=== PATIENT | female | born 1950 | race Caucasian/White ===

== ENCOUNTER → 2018-02-12 15:40 | Outpatient (CLI) | payer OTHER, SELFPAY | PROVIDERS: Family Provider Family Medicine; PCP Family Medicine; Visit Provider Family Medicine | DX: M85.852 Other specified disorders of bone density and structure, left thigh (principal); Z78.0 Asymptomatic menopausal state; Z87.891 Personal history of nicotine dependence | CPT/HCPCS: 77080 ==

== ENCOUNTER → 2019-05-17 15:48 | Outpatient (CLI) | payer OTHER, SELFPAY ==
--- NOTE | 2019-05-17 | DI.MG.S_ITS ---
BILATERAL DIGITAL SCREENING MAMMOGRAM 3D/2D WITH CAD: 05/17/2019 CLINICAL: Routine screening. Comparison is made to exams dated: 12/22/2016 mammogram, 12/08/2014 mammogram, and 03/01/2013 mammogram - [facility]. The tissue of both breasts is heterogeneously dense. This may lower the sensitivity of mammography. Current study was also evaluated with a Computer Aided Detection (CAD) system. No significant masses, calcifications, or other findings are seen in either breast. There has been no significant interval change. IMPRESSION: NEGATIVE There is no mammographic evidence of malignancy. A 1 year screening mammogram is recommended. This exam was interpreted at Station ID: [id number]. NOTE: For mammograms, a report in lay terms will be sent to the patient. Approximately 15% of breast malignancies will not be visualized mammographically. In the management of a palpable breast mass, a negative mammogram must not discourage biopsy of a clinically suspicious lesion. Electronically Signed By: Brady thorne/yany:05/17/2019 22:30:19 letter sent: Normal Exam ACR BI-RADS Category 1: Negative [id number]
== END ==
PROVIDERS: PCP Family Medicine; Visit Provider Family Medicine
DX: Z12.31 Encounter for screening mammogram for malignant neoplasm of breast (principal)
CPT/HCPCS: 77063; 77067

== ENCOUNTER 2019-06-25 12:42 | Emergency (ER) | payer OTHER, SELFPAY ==
[2019-06-25 12:53] VITALS: BP 154/69; PULSE 40; RESP 20; TEMP 36.4; O2SAT 96; BMI 22.8
[2019-06-25 13:14] VITALS: PULSE 37
[2019-06-25 13:15] VITALS: PULSE 78
--- NOTE | 2019-06-25 13:16 | PC.NURSE ---
Patient's pulse rate on the monitor is 78-80 however her palpable pulse in 39-40. In vital signs then we will put in a palpation pulse and then a monitor pulse. Patient is having electrical activity of [place] .
[2019-06-25 13:18] VITALS: BP 141/63; PULSE 46; RESP 22; O2SAT 96
--- NOTE | 2019-06-25 13:21 | DI.RAD.S_ITS ---
PROCEDURE: XR CHEST 2V INDICATIONS: Persistent cough TECHNIQUE: 2 views of the chest were acquired. COMPARISON: None. FINDINGS: Surgical changes and devices: None. Lungs and pleura: There is hyperinflation of the lungs with flattening of the hemidiaphragms compatible with COPD. no focal consolidation. No pleural effusions or pneumothorax. Mediastinum: Mediastinal contours are normal. Heart size is normal. Bones and chest wall: No suspicious bony abnormalities. Soft tissues appear unremarkable. IMPRESSION: 1. Findings compatible with COPD without evidence of pneumonia. Dictated by: Isaiah Bernstein M.D. on 06/25/2019 at 13:36 Approved by: Isaiah Bernstein M.D. on 06/25/2019 at 13:36
[2019-06-25 13:22] LABS: Add Manual Diff / Slide Review NO; Basophils Absolute Auto 0 /uL (0-100); Basophils Percent Auto 0.7 % (0-2); Eosinophils Absolute Auto 100 /uL (0-450); Eosinophils Percent Auto 1.5 % (2-4); Hematocrit 40.7 % (36-46); Hemoglobin 13.8 g/dL (12.0-16.0); Lymphocytes Absolute Auto 1300 /uL (1100-4500); Lymphocytes Percent Auto 17.5 % (25-40); Mean Corpuscular Hemoglobin 30.8 PG (26-34); Mean Corpuscular Volume 90.5 fL (80-100); Monocytes Absolute Auto 900 /uL (0-900); Monocytes Percent Auto 12.6 % (3-14); Neutrophils Absolute Auto 5100 /uL (1500-7000); Neutrophils Percent Auto 67.7 % (50-75); Platelet Count 250 X10^3/uL (150-400); Red Blood Cell Count 4.49 X10^6/uL (4.0-5.2); Red Cell Distribution Width 15.5 % (11.6-14.8); White Blood Cell Count 7.5 X10^3/uL (4.5-11.0)
--- NOTE | 2019-06-25 13:23 | ED_ITS ---
HPI - Arrhythmia/Palpitations General Chief Complaint: Arrhythmia/Palpitations Stated Complaint: low heart rate/40bpm Time Seen by Provider: 06/25/19 12:48 Source: patient Mode of arrival: Ambulatory History of Present Illness HPI narrative: This is a 6-year-old female who denies significant past medical history who presents with low pulse rate. Patient typically donates blood, she went to donate blood last week and she was told that her heart rate was too low for donate blood. She is feeling fine at that time. She called her PCP and her primary care provider said that if she continues to feel well she has be rechecked in clinic. She then tried to check her pulse at home and she has a hard time finding in, so decided to come into the emergency department to get it checked today. In triage her pulse ox read a rate of 40, so she checked in. She denies any lightheadedness, or shortness of breath. She has had a cough for over the past week which has been productive of some clear to white sputum, no hemoptysis, no chest pain. She states she has had pneumonia in the past this is not feel like pneumonia to her. She denies any fever. No known history of COPD or any cardiac conditions. Related Data Home Medications Medication Instructions Recorded Confirmed aspirin 81 mg PO QDAY #0 01/27/17 simvastatin 40 mg PO QDAY #0 01/27/17 Previous Rx's Medication Instructions Recorded meclizine 25 mg PO Q8HP PRN #20 tab 01/27/17 ondansetron [Zofran ODT] 4 mg SUBLINGUAL Q6HP PRN #10 odt 01/27/17 Allergies Allergy/AdvReac Type Severity Reaction Status Date / Time No Known Drug Allergies Allergy Verified 06/25/19 13:34 Review of Systems Constitutional Constitutional: Denies fever(s) Cardiovascular Cardiovascular: Denies chest pain and Denies dyspnea Respiratory Respiratory: Denies dyspnea Gastrointestinal Gastrointestinal: Denies vomiting Genitourinary Genitourinary: Denies dysuria Integumentary/Breasts Skin/Breast: Denies rash Neurologic Neurologic: Denies confusion Psychiatric Psychiatric: Denies confusion Patient History Social History Smoking Status: Current some day smoker Smoking Status: Current some day smoker tobacco type: cigarettes alcohol intake frequency: a few times a month Alcohol type: wine Substance Use Type: does not use Exam Narrative Exam Narrative: General: Non-toxic, well-appearing Head: Atraumatic Neck: Normal range of motion Cardiac: Irregular rhythm, on the monitor she has sinus beats with frequent PVCs. Strong radial pulses bilaterally. No lower extremity edema Respiratory: Normal work of breathing, clear to auscultation bilaterally, in termittent cough Abd: Soft, non-tender to palpation in all 4 quadrants Neuro: Alert and oriented x 3, no focal deficits Initial Vital Signs Initial Vital Signs: Vital Signs Temperature 97.5 F L 06/25/19 12:53 Pulse Rate 40 L 06/25/19 12:53 Respiratory Rate 20 06/25/19 12:53 Blood Pressure 154/69 H 06/25/19 12:53 Pulse Oximetry 96 06/25/19 12:53 Course Orders Ordered: ED Orders 06/25/19 12:53 EKG-12 Lead Stat 06/25/19 13:14 Complete Blood Count AUTO DIFF Stat Comprehensive Metabolic Panel Stat Lipase Stat Magnesium Stat Partial Thromboplastin Time Stat Prothrombin Time INR Stat TSH w/ Reflex to FT4 Stat Troponin & CK Cardiac Panel Stat 06/25/19 13:21 XR chest 2V Stat Vital Signs Vital signs: Vital Signs - 8 hr 06/25/19 13:18 06/25/19 14:22 Pulse Rate 46 L 46 L Respiratory Rate 22 Blood Pressure [Right Arm] 141/63 H 125/94 H Pulse Oximetry 96 97 MDM - Arrhythmia/Palpitations Differential Diagnosis Differential diagnosis: Likely palpitations, anxiety, artial fibrillation, ventricular premature beats and ventricular tachycardia Medical Records Attestation: I reviewed the patient's medical records. Lab Data Result diagrams: 06/25/19 13:14 06/25/19 13:14 Labs: Lab Results 06/25/19 06/25/19 06/25/19 Range/Units 13:14 13:14 13:14 WBC 7.5 (4.5-11.0) X10^3/uL RBC 4.49 (4.0-5.2) X10^6/uL Hgb 13.8 (12.0-16.0) g/dL Hct 40.7 (36-46) % MCV 90.5 (80-100) fL MCH 30.8 (26-34) PG MCHC 34.0 (30-36) % RDW 15.5 H (11.6-14.8) % Plt Count 250 (150-400) X10^3/uL Neut % (Auto) 67.7 (50-75) % Lymph % (Auto) 17.5 L (25-40) % [place] % (Auto) 12.6 (3-14) % Eos % (Auto) 1.5 L (2-4) % Baso % (Auto) 0.7 (0-2) % Neut # (Auto) 5100 (8140-0862) /uL Lymph # (Auto) 1300 (8241-9871) /uL [place] # (Auto) 900 (0-900) /uL Eos # (Auto) 100 (0-450) /uL Baso # (Auto) 0 (0-100) /uL PT 11.5 (10.1-12.7) SECONDS INR 1.0 (0.9-1.3) APTT 30 (26.4-36.2) SECONDS Sodium 137 (137-145) mmol/L Potassium 4.2 (3.4-5.1) mmol/L Chloride 104 (98-107) mmol/L Carbon Dioxide 23 (22-32) mmol/L BUN 17 (7-17) mg/dL Creatinine 0.70 (0.52-1.04) mg/dL Estimated GFR > 60.0 (>60) mL/min BUN/Creatinine Ratio 24.3 H (6-22) Glucose 99 (80-110) mg/dL Calcium 9.6 (8.4-10.2) mg/dL Magnesium 1.8 (1.6-2.3) mg/dL Total Bilirubin 0.5 (0.2-1.3) mg/dL AST 30 (14-36) IU/L ALT 31 (<35) IU/L Alkaline Phosphatase 78 (38-126) U/L Total Creatine Kinase 87 (30-135) U/L CK-MB (CK-2) TNP CK-MB (CK-2) Rel Index TNP Troponin I < 0.012 (0.01-0.034) ng/mL Total Protein 6.6 (6.3-8.2) g/dL Albumin 4.1 (3.5-5.0) g/dL Globulin 2.5 (1.7-4.1) g/dL Albumin/Globulin Ratio 1.6 (1.0-2.8) Lipase 68 (23-300) U/L TSH (0.47-4.68) uIU/mL 06/25/19 Range/Units 13:14 WBC (4.5-11.0) X10^3/uL RBC (4.0-5.2) X10^6/uL Hgb (12.0-16.0) g/dL Hct (36-46) % MCV (80-100) fL MCH (26-34) PG MCHC (30-36) % RDW (11.6-14.8) % Plt Count (150-400) X10^3/uL Neut % (Auto) (50-75) % Lymph % (Auto) (25-40) % [place] % (Auto) (3-14) % Eos % (Auto) (2-4) % Baso % (Auto) (0-2) % Neut # (Auto) (7941-2177) /uL Lymph # (Auto) (8109-2428) /uL [place] # (Auto) (0-900) /uL Eos # (Auto) (0-450) /uL Baso # (Auto) (0-100) /uL PT (10.1-12.7) SECONDS INR (0.9-1.3) APTT (26.4-36.2) SECONDS Sodium (137-145) mmol/L Potassium (3.4-5.1) mmol/L Chloride (98-107) mmol/L Carbon Dioxide (22-32) mmol/L BUN (7-17) mg/dL Creatinine (0.52-1.04) mg/dL Estimated GFR (>60) mL/min BUN/Creatinine Ratio (6-22) Glucose (80-110) mg/dL Calcium (8.4-10.2) mg/dL Magnesium (1.6-2.3) mg/dL Total Bilirubin (0.2-1.3) mg/dL AST (14-36) IU/L ALT (<35) IU/L Alkaline Phosphatase (38-126) U/L Total Creatine Kinase (30-135) U/L CK-MB (CK-2) CK-MB (CK-2) Rel Index Troponin I (0.01-0.034) ng/mL Total Protein (6.3-8.2) g/dL Albumin (3.5-5.0) g/dL Globulin (1.7-4.1) g/dL Albumin/Globulin Ratio (1.0-2.8) Lipase (23-300) U/L TSH 2.15 (0.47-4.68) uIU/mL Imaging Data CXR: Radiologist's impression: IMPRESSION: 1. Findings compatible with COPD without evidence of pneumonia. Dictated by: Isaiah Bernstein M.D. on 06/25/2019 at 13:36 Approved by: Isaiah Bernstein M.D. on 06/25/2019 at 13:36 ECG Data Attestation: I personally reviewed and interpreted this ECG as follows: (Time 12:57 p.m., rate 87, rhythm sinus with frequent PVCs. There is some baseline wander which obscures fine detail evaluation, but there is no obvious ST depression or elevation.) MDM Narrative Medical decision making narrative: Patient presents with low pulse measured on several occasions, she is asymptomatic has no chest pain or shortness of breath or lightheadedness. She has had a cough over the last several weeks but this has been improving. Her EKG shows that she in fact is having frequent PVCs, these are not always registering as well on the pulse ox, but her heart rate on the monitor and EKG is within normal range. Her blood pressure is normal, she has no lightheadedness, no syncope, no chest pain. She is not on any obvious medications that would lower her heart rate. Her workup here reveals no signs of ischemia (normal troponin), no signs of pneumonia or acute cardiopulmonary process. She does have COPD, but no increased sputum production, no fever, and her cough has been improving so she would like to defer antibiotics and steroids at this time. I discussed with patient that she needs to follow closely with the primary care provider, and if she is having any symptoms she needs to return to the emergency department. I reviewed return precautions in depth with the patient, who continued to be asymptomatic and was eager to go home. She was discharged in good condition. Discharge Plan Departure Patient Disposition: Home Clinical Impression: Asymptomatic PVCs Discharge Date/Time: 06/25/19 15:11 Activity Restrictions/Additional Instructions: Your labs are reassuring today, your EKG does show frequent PVCs/premature beats. As long as these are not causing any symptoms, you may not need to start any medications, but please follow up with your primary care provider for discussion of any more testing such as an echocardiogram or seeing a environmental engineering technician if needed. If you have any lightheadedness, passing out, chest pain, or shortness of breath, return to the emergency department. Here chest x- ray does show COPD, if your cough does not show continuing improvement you likely will need some steroids. Prescriptions: No Action simvastatin 40 MG tablet 40 mg PO QDAY Qty: 0 RF: 0 aspirin 81 MG tablet,delayed release (DR/EC) 81 mg PO QDAY Qty: 0 RF: 0 meclizine 25 MG tablet 25 mg PO Q8HP PRNQty: 20 RF: 0 ondansetron [Zofran ODT] 4 MG tablet,disintegrating 4 mg Sublingual Q6HP PRNQty: 10 RF: 0 Referrals: Paulino Plascencia MD [Primary Care Provider] - (Early this next week, call Thursday for an appt)
[2019-06-25 13:29] LABS: Prothrombin Time 11.5 SECONDS (10.1-12.7)
[2019-06-25 13:32] LABS: PTT Partial Thromboplastin Tim 30 SECONDS (26.4-36.2)
[2019-06-25 13:41] LABS: Alanine Aminotransferase 31 IU/L (<35); Albumin 4.1 g/dL (3.5-5.0); Albumin Globulin Ratio 1.6 (1.0-2.8); Alkaline Phosphatase 78 U/L (38-126); Aspartate Aminotransferase 30 IU/L (14-36); BUN Creatinine Ratio 24.3 (6-22); Bilirubin Total 0.5 mg/dL (0.2-1.3); Blood Urea Nitrogen 17 mg/dL (7-17); Calcium 9.6 mg/dL (8.4-10.2); Carbon Dioxide 23 mmol/L (22-32); Chloride 104 mmol/L (98-107); Creatine Kinase 87 U/L (30-135); Estimated Glomerular Filt Rate > 60.0 mL/min (>60); Globulin 2.5 g/dL (1.7-4.1); Glucose 99 mg/dL (80-110); HEMOLYSIS < 15 (0-50); Lipase 68 U/L (23-300); Magnesium 1.8 mg/dL (1.6-2.3); Potassium 4.2 mmol/L (3.4-5.1); Sodium 137 mmol/L (137-145); Total Protein 6.6 g/dL (6.3-8.2)
[2019-06-25 13:52] LABS: Troponin I < 0.012 ng/mL (0.01-0.034)
[2019-06-25 14:22] VITALS: BP 125/94; PULSE 46; O2SAT 97
--- NOTE | 2019-06-25 14:40 | PC.NURSE ---
Spoke w/ Dr. Coleman (covering for Dr. Plascencia). Gave report and she will ensure follow up early in week. Added thyroid studies per her request.
[2019-06-25 15:24] LABS: TSH w/ Reflex to FT4 2.15 uIU/mL (0.47-4.68)
== END 2019-06-25 15:11 | disposition home or self-care (01) ==
PROVIDERS: Emergency Provider Emergency Medicine; PCP Family Medicine
DX: I49.3 Ventricular premature depolarization (principal); R05 Cough
CPT/HCPCS: 36415; 71046; 80053; 82550; 83690; 83735; 84443; 84484; 85025; 85610; 85730; 93005; 93041; 99284; 99285

== ENCOUNTER → 2019-08-31 09:27 | Outpatient (CLI) | payer OTHER, SELFPAY ==
--- NOTE | 2019-09-16 16:25 | PM.CARDMON.1 ---
Ammonium Hydroxide Operator Report Referral & Results Date Patient Seen: 08/31/19 Requesting provider: Paulino Plascencia Indication: Palpitations Duration of monitoring (days): 7 Diary information: There are no patient diary entries or patient triggered events Data: Minimum heart rate identified was 52 beats per minute at 05:12 on 09/05/2019 Maximum heart rate was 141 beats per minute at 12:31 on 09/06/2019 Less than 1% of identified beats were supraventricular ectopic in origin Approximately 18% of identified beats were ventricular ectopic in origin including a 32 minutes run of ventricular trigeminy and a 1 minutes run of ventricular bigeminy Patient had 6 runs of SVT/atrial tachycardia longest lasting 8 beats Impression: Despite no patient triggered events or diary entries given the frequency of PVCs it seems logical to assume the patient's sense of palpitations are due to PVCs. No more serious dysrhythmias identified on this study
== END ==
PROVIDERS: PCP Family Medicine; Referring Provider Family Medicine; Visit Provider Family Medicine
DX: R00.2 Palpitations (principal)
CPT/HCPCS: 0296T; 0298T

== ENCOUNTER 2020-09-07 10:13 | Emergency (ER) | payer OTHER, SELFPAY ==
[2020-09-07] VITALS (12 sets, daily range): BP systolic 134–177; BP diastolic 63–86; PULSE 60–74; RESP 19–28; TEMP 36.7; O2SAT 94–97; BMI 25.0
--- NOTE | 2020-09-07 10:28 | DI.RAD.S_ITS ---
PROCEDURE: XR CHEST 1V INDICATIONS: chest pain TECHNIQUE: One view of the chest was acquired. COMPARISON: [facility], CR, XR CHEST 2V, 06/25/2019, 14:02. FINDINGS: Surgical changes and devices: None. Lungs and pleura: Lungs are clear. No pleural effusions or pneumothorax. Mediastinum: Mediastinal contours appear normal. Heart size is normal. Bones and chest wall: No suspicious bony lesions. Overlying soft tissues appear unremarkable. IMPRESSION: No acute disease. Dictated by: Pedrito Diaz M.D. on 09/07/2020 at 11:02 Approved by: Pedrito Diaz M.D. on 09/07/2020 at 11:07
[2020-09-07] MEDS: ASPIRIN 81 MG CHEW TAB 243 MG PO (10:30)
[2020-09-07 10:35] LABS: Add Manual Diff / Slide Review NO; Basophils Absolute Auto 0 /uL (0-100); Basophils Percent Auto 0.7 % (0-2); Eosinophils Absolute Auto 200 /uL (0-450); Eosinophils Percent Auto 3.1 % (2-4); Hematocrit 40.7 % (36-46); Hemoglobin 13.8 g/dL (12.0-16.0); Lymphocytes Absolute Auto 1500 /uL (1100-4500); Lymphocytes Percent Auto 22.3 % (25-40); Mean Corpuscular HGB Conc 33.8 % (30-36); Mean Corpuscular Volume 94.4 fL (80-100); Monocytes Absolute Auto 700 /uL (0-900); Monocytes Percent Auto 10.7 % (3-14); Neutrophils Absolute Auto 4100 /uL (1500-7000); Neutrophils Percent Auto 63.2 % (50-75); Platelet Count 268 X10^3/uL (150-400); Red Blood Cell Count 4.31 X10^6/uL (4.0-5.2); Red Cell Distribution Width 13.2 % (11.6-14.8); White Blood Cell Count 6.5 X10^3/uL (4.5-11.0)
[2020-09-07 10:42] LABS: INR 0.9 (0.9-1.3); Prothrombin Time 10.9 SECONDS (10.1-12.7)
[2020-09-07 10:45] LABS: PTT Partial Thromboplastin Tim 31 SECONDS (26.4-36.2)
[2020-09-07 10:46] LABS: Alanine Aminotransferase 30 IU/L (<35); Albumin 4.2 g/dL (3.5-5.0); Albumin Globulin Ratio 1.6 (1.0-2.8); Alkaline Phosphatase 83 U/L (38-126); Aspartate Aminotransferase 27 IU/L (14-36); BUN Creatinine Ratio 14.5 (6-22); Bilirubin Total 0.2 mg/dL (0.2-1.3); Blood Urea Nitrogen 10 mg/dL (7-17); Calcium 9.2 mg/dL (8.4-10.2); Carbon Dioxide 27 mmol/L (22-32); Chloride 106 mmol/L (98-107); Creatine Kinase 65 U/L (30-135); Estimated Glomerular Filt Rate > 60.0 mL/min (>60); Globulin 2.6 g/dL (1.7-4.1); Glucose 107 mg/dL (80-110); HEMOLYSIS < 15 (0-50); Lipase 261 U/L (23-300); Potassium 4.2 mmol/L (3.4-5.1); Sodium 136 mmol/L (137-145); Total Protein 6.8 g/dL (6.3-8.2)
[2020-09-07 10:57] LABS: Troponin I < 0.012 ng/mL (0.01-0.034)
--- NOTE | 2020-09-07 11:20 | ED.CHESTPAIN ---
HPI - Chest Pain General Chief Complaint: Chest Pain Stated Complaint: Having heart problems Time Seen by Provider: 09/07/20 10:21 Source: patient Mode of arrival: Ambulatory Limitations: no limitations History of Present Illness HPI narrative: Patient is a 70-year-old female who presents with chest discomfort is. She says it has actually been on going for number of weeks. It was worse with movement she thought that she pulled her did something. She noticed it more when she was twisting turning and moving. However over the last week she has had some left arm achiness which does seem to get worse with some exertion. However today she noticed it while she was at rest. It is no longer there she denies any chest discomfort. Pain is not reproducible with palpation or movement. She has no shortness of breath with exertion MD complaint: chest pain Onset (ago): week(s) Duration: intermittent Onset: during exertion Related Data Home Medications Medication Instructions Recorded Confirmed aspirin 81 mg PO QDAY #0 01/27/17 simvastatin 40 mg PO QDAY #0 01/27/17 Previous Rx's Medication Instructions Recorded meclizine 25 mg PO Q8HP PRN #20 tab 01/27/17 ondansetron [Zofran ODT] 4 mg SUBLINGUAL Q6HP PRN #10 odt 01/27/17 Allergies Allergy/AdvReac Type Severity Reaction Status Date / Time No Known Drug Allergies Allergy Verified 09/07/20 10:24 Review of Systems Review of Systems Narrative: GENERAL: Denies chills, fatigue, malaise, fever, sweats, travel HEENT: Denies sinus pain, ear pain, sore throat, difficulty swallowing, neck pain RESPIRATORY: Denies dyspnea, cough, wheezing, hemoptysis, sputum. CARDIOVASCULAR: See HPI GASTROINTESTINAL: Denies nausea, vomiting, abdominal pain, diarrhea, constipation, melena. : Denies dysuria, frequency, incontinence, hematuria, urinary retention, flank pain. MUSCULOSKELETAL: Denies weakness, joint pain, or bony pain SKIN: No rash, no erythema, no pruritus NEUROLOGIC: Denies weakness, dizziness, headache, numbness, change in speech, confusion PSYCHIATRIC: No concerning psychosocial issues. 12 point review of systems is negative except for those stated above and HPI Patient History Medical History Hyperlipidemia Social History Smoking Status: Current some day smoker Smoking Status: Current some day smoker tobacco type: cigarettes alcohol intake frequency: a few times a month Alcohol type: wine Substance Use Type: does not use Exam Initial Vital Signs Initial Vital Signs: Vital Signs Pulse Rate 74 09/07/20 10:21 Respiratory Rate 28 H 09/07/20 10:21 Blood Pressure 177/86 H 09/07/20 10:21 Pulse Oximetry 96 09/07/20 10:21 GENERAL: Well-appearing, well-nourished and in no acute distress. HEENT: Head atraumatic,EOMI, pupils reactive, face symmetric, moist mucous membranes CARDIOVASCULAR: Regular rate and rhythm without murmurs, rubs or gallops. RESPIRATORY: Breath sounds equal bilaterally, no wheezes rales or rhonchi. ABDOMEN: Soft, nontender. Normoactive bowel sounds all 4 quadrants. No guarding or rebound. EXTREMITIES: Normal range of motion, no clubbing or edema. Neurovascularly intact NEUROLOGICAL: Alert and oriented x4.Normal gait and speech. Cranial nerves II through XII grossly intact. SKIN: Warm, dry, no laceration, no petechiae, no rashes or lesions. Scores HEART Score Heart Score history: Slightly Suspicious Heart Score EKG: Normal Heart Score Age: > or = 65 years old Heart Score risk factors: 1-2 risk factors Heart Score troponin: < or = to normal limit Heart Score Total: 3 Course Orders Ordered: ED Orders 09/07/20 10:28 XR chest 1V Stat Complete Blood Count AUTO DIFF Stat Comprehensive Metabolic Panel Stat Lipase Stat Partial Thromboplastin Time Stat Prothrombin Time INR Stat Troponin & CK Cardiac Panel Stat EKG-12 Lead Stat 09/07/20 12:32 Troponin I Stat Discontinued Medications Aspirin (Aspirin 81 Mg Chew Tab) 243 mg PO NOW ONE Stop: 09/07/20 10:29 Last Admin: 09/07/20 10:30 Dose: 243 mg Documented by: LENA Vital Signs Vital signs: Vital Signs - 8 hr 09/07/20 11:30 09/07/20 12:00 09/07/20 12:30 Pulse Rate 63 60 60 Respiratory Rate 22 23 21 Blood Pressure 134/63 138/67 148/72 H Pulse Oximetry 94 94 94 09/07/20 13:00 09/07/20 13:21 09/07/20 13:30 Pulse Rate 60 64 64 Respiratory Rate 23 19 23 Blood Pressure 145/73 H 166/77 H 159/78 H Pulse Oximetry 97 97 96 09/07/20 14:00 09/07/20 14:01 Pulse Rate 67 65 Respiratory Rate 27 H 26 H Blood Pressure 145/63 H Pulse Oximetry 95 95 MDM - Chest Pain Lab Data Attestation: I reviewed the patient's lab results. Result diagrams: 09/07/20 10:28 09/07/20 10:28 Labs: Lab Results 09/07/20 09/07/20 09/07/20 Range/Units 10:28 10:28 10:28 WBC 6.5 (4.5-11.0) X10^3/uL RBC 4.31 (4.0-5.2) X10^6/uL Hgb 13.8 (12.0-16.0) g/dL Hct 40.7 (36-46) % MCV 94.4 (80-100) fL MCH 32.0 (26-34) PG MCHC 33.8 (30-36) % RDW 13.2 (11.6-14.8) % Plt Count 268 (150-400) X10^3/uL Neut % (Auto) 63.2 (50-75) % Lymph % (Auto) 22.3 L (25-40) % [place] % (Auto) 10.7 (3-14) % Eos % (Auto) 3.1 (2-4) % Baso % (Auto) 0.7 (0-2) % Neut # (Auto) 4100 (2190-0896) /uL Lymph # (Auto) 1500 (8357-0371) /uL [place] # (Auto) 700 (0-900) /uL Eos # (Auto) 200 (0-450) /uL Baso # (Auto) 0 (0-100) /uL PT 10.9 (10.1-12.7) SECONDS INR 0.9 (0.9-1.3) APTT 31 (26.4-36.2) SECONDS Sodium 136 L (137-145) mmol/L Potassium 4.2 (3.4-5.1) mmol/L Chloride 106 (98-107) mmol/L Carbon Dioxide 27 (22-32) mmol/L BUN 10 (7-17) mg/dL Creatinine 0.69 (0.52-1.04) mg/dL Estimated GFR > 60.0 (>60) mL/min BUN/Creatinine Ratio 14.5 (6-22) Glucose 107 (80-110) mg/dL Calcium 9.2 (8.4-10.2) mg/dL Total Bilirubin 0.2 (0.2-1.3) mg/dL AST 27 (14-36) IU/L ALT 30 (<35) IU/L Alkaline Phosphatase 83 (38-126) U/L Total Creatine Kinase 65 (30-135) U/L CK-MB (CK-2) TNP CK-MB (CK-2) Rel Index TNP Troponin I < 0.012 (0.01-0.034) ng/mL Total Protein 6.8 (6.3-8.2) g/dL Albumin 4.2 (3.5-5.0) g/dL Globulin 2.6 (1.7-4.1) g/dL Albumin/Globulin Ratio 1.6 (1.0-2.8) Lipase 261 (23-300) U/L 09/07/20 Range/Units 12:32 WBC (4.5-11.0) X10^3/uL RBC (4.0-5.2) X10^6/uL Hgb (12.0-16.0) g/dL Hct (36-46) % MCV (80-100) fL MCH (26-34) PG MCHC (30-36) % RDW (11.6-14.8) % Plt Count (150-400) X10^3/uL Neut % (Auto) (50-75) % Lymph % (Auto) (25-40) % [place] % (Auto) (3-14) % Eos % (Auto) (2-4) % Baso % (Auto) (0-2) % Neut # (Auto) (5016-8976) /uL Lymph # (Auto) (3849-3302) /uL [place] # (Auto) (0-900) /uL Eos # (Auto) (0-450) /uL Baso # (Auto) (0-100) /uL PT (10.1-12.7) SECONDS INR (0.9-1.3) APTT (26.4-36.2) SECONDS Sodium (137-145) mmol/L Potassium (3.4-5.1) mmol/L Chloride (98-107) mmol/L Carbon Dioxide (22-32) mmol/L BUN (7-17) mg/dL Creatinine (0.52-1.04) mg/dL Estimated GFR (>60) mL/min BUN/Creatinine Ratio (6-22) Glucose (80-110) mg/dL Calcium (8.4-10.2) mg/dL Total Bilirubin (0.2-1.3) mg/dL AST (14-36) IU/L ALT (<35) IU/L Alkaline Phosphatase (38-126) U/L Total Creatine Kinase (30-135) U/L CK-MB (CK-2) CK-MB (CK-2) Rel Index Troponin I < 0.012 (0.01-0.034) ng/mL Total Protein (6.3-8.2) g/dL Albumin (3.5-5.0) g/dL Globulin (1.7-4.1) g/dL Albumin/Globulin Ratio (1.0-2.8) Lipase (23-300) U/L Imaging Data Chest x-ray: Radiologist's Impression: PROCEDURE: XR CHEST 1V INDICATIONS: chest pain TECHNIQUE: One view of the chest was acquired. COMPARISON: [facility], , XR CHEST 2V, 06/25/2019, 14:02. FINDINGS: Surgical changes and devices: None. Lungs and pleura: Lungs are clear. No pleural effusions or pneumothorax. Mediastinum: Mediastinal contours appear normal. Heart size is normal. Bones and chest wall: No suspicious bony lesions. Overlying soft tissues appear unremarkable. IMPRESSION: No acute disease. Dictated by: Pedrito Diaz M.D. on 09/07/2020 at 11:02 Approved by: Pedrito Diaz M.D. on 09/07/2020 at 11:07 ECG Data Attestation: I personally reviewed and interpreted this ECG as follows: Prior ECG tracings: available for review Interpretation: Normal sinus rhythm rate 70 p.r. interval 162 QRS 86 QTC [address] changes or T-wave inversions previous EKG was bigeminy so this is much improved. MDM Narrative Medical decision making narrative: Patient remains chest pain-free and arm pain free in the emergency department. She has 2-troponins ambulatory in the ED without recurrence of pain. Concern for possible escalation of symptoms arm achiness is could be equivalent to angina especially in women however it has been ongoing for couple of days. I discussed possible admission with patient for stress test however at this time she does not want to stay she would rather follow up with PCP [id number] Dr. Sherman updated on patient's symptoms and test results at this time we both agree that outpatient stress test is best option. I have instructed patient to call his PCP office to schedule an appointment for Thursday or Thursday and to have stress test. I discussed all findings with the patient, Education has been performed regarding treatment plan, diagnosis, warning signs and symptoms and all concerns have been addressed. Verbally agree with and understood all of the above. Discharge Plan Departure Patient Disposition: Home Clinical Impression: Chest pain Qualifiers: Chest pain type: other chest pain Qualified Code(s): R07.89 - Other chest pain Instructions: DI for Chest Pain Activity Restrictions/Additional Instructions: *You have been diagnosed with chest pain *What to do: You need a stress test. Please call your primary care provider today as soon as you get home to schedule an appointment for Thursday or Thursday so that they can schedule a stress test. I spoke with Dr. Sherman who is aware of this. *Continue to take medications as directed *Follow up with your primary care provider in 2-3 days *Return to ER if you should have increasing arm achiness, chest pain, shortness of breath or any new, worsening or concerning symptoms Prescriptions: No Action simvastatin 40 MG tablet 40 mg PO QDAY Qty: 0 RF: 0 aspirin 81 MG tablet,delayed release (DR/EC) 81 mg PO QDAY Qty: 0 RF: 0 meclizine 25 MG tablet 25 mg PO Q8HP PRNQty: 20 RF: 0 ondansetron [Zofran ODT] 4 MG tablet,disintegrating 4 mg Sublingual Q6HP PRNQty: 10 RF: 0 Referrals: Astrid Sherman MD [Physician] -
[2020-09-07 13:05] LABS: Troponin I < 0.012 ng/mL (0.01-0.034)
== END 2020-09-07 14:12 | disposition home or self-care (01) ==
PROVIDERS: Emergency Provider Emergency Medicine
DX: R07.89 Other chest pain (principal); E78.5 Hyperlipidemia, unspecified
CPT/HCPCS: 36415; 71045; 80053; 82550; 83690; 84484; 85025; 85610; 85730; 93005; 93010; 99283; 99284

== ENCOUNTER → 2020-09-15 14:22 | Outpatient (CLI) | payer OTHER, SELFPAY ==
[2020-09-15 16:31] LABS: COVID19 -Nasal RAPID Negative (Negative)
== END ==
PROVIDERS: Visit Provider Student in an Organized Health Care Education/Training Program
DX: Z01.812 Encounter for preprocedural laboratory examination (principal); Z20.822 Contact with and (suspected) exposure to COVID-19
CPT/HCPCS: 87635

== ENCOUNTER → 2020-09-17 13:35 | Outpatient (CLI) | payer OTHER, SELFPAY ==
--- NOTE | 2020-09-17 | DI.NM.S_ITS ---
PROCEDURE: NM VINCENT PERF SPECT REST & STR Rest and exercise myocardial perfusion SPECT with gated imaging and ejection fraction RADIOPHARMACEUTICAL: 25.4 mCi Tc-99m sestamibi IV at rest and 25.8 mCi Tc-99m sestamibi IV at peak exercise. A two day-protocol was performed. INDICATIONS: Cardiac arrhythmia, unspecified TECHNIQUE: Radiopharmaceutical was injected at peak stress test, and also at rest. SPECT images were obtained. SPECT myocardial perfusion images were displayed in short axis, horizontal long axis, and vertical long axis views. Gated images were reviewed using [employer] software. COMPARISON: None. CARDIAC STRESS: A standard Bird treadmill exercise tolerance test was performed by the patient under the supervision of an attending staff. The patient exercised for 4 minutes and 1 seconds; functional aerobic impairment (NURY) is +28%. Hemodynamic data: There is normal blood pressure and heart rate response to exercise stress. Patient achieved 100% of maximum predicted heart rate at peak exercise. Symptoms: Patient denied chest pain during exercise. EKG: Mild horizontal ST depressions in the inferior and anterolateral leads; no ectopy. FINDINGS: Raw data: There is good myocardial labeling by radiotracer. No significant motion artifacts. Wpji-mm-mrdqx ratio is 0.32 (normal is less than 0.38 for sestamibi tracer, and less than 0.50 for thallium tracer). Left ventricle function: Gated images demonstrate normal left ventricle wall thickening. No segmental wall motion abnormality. No transient ischemic dilation; TID is 0.83 (normal less than 1.3). The left ventricle resting end-diastolic volume is 64 mL. Left ventricle stress ejection fraction is 66%; normal values are above 45%. Myocardial perfusion: There is a moderately intense fixed defect in the inferior wall defect that resolves with prone imaging, suggesting attenuation artifact than true ischemia or infarction. IMPRESSION: Low risk, probably normal treadmill nuclear stress test. 1) There is a moderately intense fixed defect in the inferior wall defect that resolves with prone imaging, suggesting attenuation artifact than true ischemia or infarction. 2) Normal left ventricular size, wall motion, and systolic function (EF post stress 66%). 3) Mild horizontal ST depressions in the inferior and anterolateral leads. ECG changes in the normal perfusion images are likely false positive. 4) No angina during the study. 5) Reduced exercise tolerance (7.0 METs, NURY +28%). Target heart rate achieved. Appropriate BP response to exercise. 6) Compared to the nuclear stress test done 04/12/2012, ischemia in the LAD territory is no longer present on the current study. Dictated by: Love Palacios MD on 09/18/2020 at 14:01 Approved by: Love Palacios MD on 09/18/2020 at 14:05
== END ==
PROVIDERS: Referring Provider Internal Medicine; Visit Provider Internal Medicine
DX: I49.9 Cardiac arrhythmia, unspecified (principal); R07.89 Other chest pain
CPT/HCPCS: 78452; 93017; A9502

== ENCOUNTER → 2021-04-18 16:49 | Outpatient (CLI) | payer OTHER, SELFPAY ==
--- NOTE | 2021-04-18 | DI.MG.S_ITS ---
BILATERAL DIGITAL SCREENING MAMMOGRAM 3D/2D WITH CAD: 04/18/2021 CLINICAL: Routine screening. Comparison is made to exams dated: 05/17/2019 mammogram, 12/22/2016 mammogram, and 12/08/2014 mammogram - [facility]. The tissue of both breasts is heterogeneously dense. This may lower the sensitivity of mammography. Current study was also evaluated with a Computer Aided Detection (CAD) system. There is a benign calcification in the right breast. There also are benign calcifications in the left breast. There is a mole marker on the right breast. No significant masses, calcifications, or other findings are seen in either breast. There has been no significant interval change. IMPRESSION: BENIGN There is no mammographic evidence of malignancy. A 1 year screening mammogram is recommended. This exam was interpreted at Station ID: [id number]. NOTE: For mammograms, a report in lay terms will be sent to the patient. Approximately 15% of breast malignancies will not be visualized mammographically. In the management of a palpable breast mass, a negative mammogram must not discourage biopsy of a clinically suspicious lesion. Electronically Signed By: Nii Richards acr/penrad:04/18/2021 17:17:22 letter sent: Normal Exam ACR BI-RADS Category 2: Benign Finding(s) 3342F
== END ==
PROVIDERS: PCP Family Medicine; Referring Provider Family Medicine; Visit Provider Family Medicine
DX: Z12.31 Encounter for screening mammogram for malignant neoplasm of breast (principal)
CPT/HCPCS: 77063; 77067

== ENCOUNTER → 2022-05-02 15:53 | Outpatient (CLI) | payer OTHER, SELFPAY ==
--- NOTE | 2022-05-02 15:56 | DI.MG.S_ITS ---
BILATERAL DIGITAL SCREENING MAMMOGRAM 3D/2D WITH CAD: 05/02/2022 CLINICAL: Routine screening. Comparison is made to exams dated: 04/18/2021 mammogram, 05/17/2019 mammogram, and 12/22/2016 mammogram - [facility]. Both breasts are heterogeneously dense, which may obscure small masses (category c / 51-75% glandular tissue). Current study was also evaluated with a Computer Aided Detection (CAD) system. There is a possible new irregular asymmetry in the left breast middle depth lateral region seen on the craniocaudal view only. No other significant masses, calcifications, or other findings are seen in either breast. IMPRESSION: INCOMPLETE: NEEDS ADDITIONAL IMAGING EVALUATION The possible new irregular asymmetry in the left breast is indeterminate. Additional views with possible ultrasound are recommended. Based on the Tyrer Cuzick model (a risk assessment model) the patient's lifetime risk is 6.6% and her 10 year risk is 5.4%. According to the ACR, ACS, and NCCN guidelines, an annual breast MRI exam along with mammogram is recommended if the patient's lifetime risk is 20% or greater. This exam was interpreted at Station ID: [id number]. NOTE: For mammograms, a report in lay terms will be sent to the patient. Approximately 15% of breast malignancies will not be visualized mammographically. In the management of a palpable breast mass, a negative mammogram must not discourage biopsy of a clinically suspicious lesion. Electronically Signed By: Jasmin alvarez/yany:05/02/2022 18:05:31 letter sent: Additional Imaging Needed ACR BI-RADS Category 0: Incomplete 3340F
== END ==
PROVIDERS: PCP Family Medicine; Referring Provider Family Medicine; Visit Provider Family Medicine
DX: Z12.31 Encounter for screening mammogram for malignant neoplasm of breast (principal)
CPT/HCPCS: 77063; 77067

== ENCOUNTER → 2022-06-09 11:54 | Outpatient (CLI) | payer OTHER, SELFPAY ==
--- NOTE | 2022-06-09 11:56 | DI.US.S_ITS ---
LIMITED ULTRASOUND OF LEFT BREAST: 06/09/2022 CLINICAL: Patient returns today to evaluate an asymmetry in the left breast. Comparison is made to exams dated: 06/09/2022 mammogram, 05/02/2022 mammogram, 04/18/2021 mammogram, 05/17/2019 mammogram, and 12/22/2016 mammogram - [facility]. Color flow ultrasound of the left breast 2-3 o'clock region was performed. [place] scale images of the real-time examination were reviewed. No significant abnormalities were seen sonographically in the left breast. IMPRESSION: NEGATIVE There is no sonographic evidence of malignancy. There is no abnormality seen in the left breast to correspond with the mammography finding which is consistent with normal fibroglandular tissue. Return to annual mammogram screening schedule is recommended. This exam was interpreted at Station ID: [id number]. Electronically Signed By: Srinivasan bernal/yany:06/09/2022 13:49:19 letter sent: Normal Exam Ultrasound BI-RADS: 1 Negative
--- NOTE | 2022-06-09 11:56 | DI.MG.S_ITS ---
UNILATERAL LEFT DIGITAL DIAGNOSTIC MAMMOGRAM 3D/2D WITH ADDITIONAL VIEWS: 06/09/2022 CLINICAL: Additional evaluation requested from prior study. Comparison is made to exams dated: 05/02/2022 mammogram, 04/18/2021 mammogram, 05/17/2019 mammogram, and 12/22/2016 mammogram - [facility]. The left breast is heterogeneously dense, which may obscure small masses (category c / 51-75% glandular tissue). There is a possible asymmetry in the left breast at 2 o'clock middle depth. This is less prominent. No other significant masses or calcifications are seen in the breast. IMPRESSION: INCOMPLETE: NEEDS ADDITIONAL IMAGING EVALUATION The possible asymmetry in the left breast is indeterminate. An ultrasound is recommended. Based on the Tyrer Cuzick model (a risk assessment model) the patient's lifetime risk is 6.6% and her 10 year risk is 5.4%. According to the ACR, ACS, and NCCN guidelines, an annual breast MRI exam along with mammogram is recommended if the patient's lifetime risk is 20% or greater. This exam was interpreted at Station ID: [id number]. NOTE: For mammograms, a report in lay terms will be sent to the patient. Approximately 15% of breast malignancies will not be visualized mammographically. In the management of a palpable breast mass, a negative mammogram must not discourage biopsy of a clinically suspicious lesion. Electronically Signed By: Srinivasan bernal/yany:06/09/2022 13:48:19 ACR BI-RADS Category 0: Incomplete 3340F
== END ==
PROVIDERS: PCP Family Medicine; Referring Provider Family Medicine; Visit Provider Family Medicine
DX: R92.2 Inconclusive mammogram (principal)
CPT/HCPCS: 76642; 77065; G0279

== ENCOUNTER → 2022-10-20 10:09 | Outpatient (CLI) | payer OTHER, SELFPAY ==
--- NOTE | 2022-10-20 10:24 | DI.DEXA.S_ITS ---
Bone Density Report Name: ISH BALDERAS Age: 72 Sex: Female Ethnicity: White Date of : 1950 Indication: osteopenia; Referring Provider: ALTAGRACIA SHETTY Study: Bone densitometry was performed. Exam Date: October 20, 2022 Accession number: [id number] Bone Density: Region BMD T-score Z-score Classification AP Spine(L1-L4) 0.995 -0.5 1.8 Normal Femoral Neck (Left) 0.527 -2.9 -0.9 Osteoporosis Total Hip (Left) 0.681 -2.1 -0.4 Osteopenia Femoral Neck (Right) 0.556 -2.6 -0.6 Osteoporosis Total Hip (Right) 0.659 -2.3 -0.6 Osteopenia Total Hip Mean 0.670 -2.2 -0.5 Osteopenia World Health Organization criteria for BMD impression classify patients as: Normal (T-score at or above -1.0), Osteopenia (T-score between -1.0 and -2.5), or Osteoporosis (T-score at or below -2.5). 10-year Fracture Risk: FRAX not reported because: Some T-score for Spine Total or Hip Total or Femoral Neck at or below -2.5 Previous Exams: -- Region Exam Age BMD T-score BMD Change BMD Change Date g/cm2 vs Baseline vs Previous -- AP Spine (L1-L4) 10/20/2022 72 0.995 -0.5 -0.078 (-7.3%)# -0.078 (-7.3%)# 02/12/2018 67 1.073 0.2 Total Hip(Left) 10/20/2022 72 0.681 -2.1 0.008 (1.2%)# 0.008 (1.2%)# 02/12/2018 67 0.672 -2.2 Total Hip(Right) 10/20/2022 72 0.659 -2.3 -0.010 (-1.5%)# -0.010 (-1.5%)# 02/12/2018 67 0.669 -2.2 -- *Denotes significance at 95% confidence level, LSC for AP Spine = 0.022 g/cm2, LSC for Total Hip = 0.027 g/cm2 # Denotes dissimilar scan types or analysis methods Impression: The patient has osteoporosis, based on the Left Femoral Neck T-score. No significant bone loss was observed. Discussion: INCREASED RISK OF FRACTURE. BONE DENSITY IS UNDESIRABLY LOW AT ONE OR MORE SKELETAL SITES, CONSISTENT WITH POSTMENOPAUSAL OSTEOPOROSIS. This patient's lowest T-score meets the World Health Organization's (WHO) criteria for osteoporosis at one or more sites (T-score -2.5 or below). In untreated patients, the risk of osteoporotic fracture increases approximately two-fold for each 1.0 SD decrease in T-score. Low bone density is not the only risk factor for fracture; also consider factors such as patient's age, frailty or poor health, risk of falling, risk of injury, previous osteoporotic fracture, family history of osteoporosis, cigarette smoking, low body weight, etc. Not everyone with low bone mineral density has osteoporosis; osteomalacia and other metabolic bone disorders should also be considered. Patients who have osteoporosis should be evaluated for specific diseases and conditions (secondary causes) that may cause or contribute to bone loss. The [place] Association [employer] Clinical Endocrinologists (AACE) and National Osteoporosis Foundation (NOF) recommend pharmacologic intervention for all postmenopausal women whose T-score is in this range. The patient should follow a healthful lifestyle (good nutrition with adequate calcium and vitamin D, and appropriate weight-bearing exercise). Follow-Up: Consider a repeat BMD and Vertebral Fracture Assessment (VFA) exam in 2 years or sooner if medically necessary, to reassess this patient's status. Reported by: LYNNETTE MOURA M.D. on 10/20/2022 10:36:00 AM.
== END ==
PROVIDERS: PCP Family Medicine; Referring Provider Family Medicine; Visit Provider Family Medicine
DX: M81.0 Age-related osteoporosis without current pathological fracture (principal); Z78.0 Asymptomatic menopausal state
CPT/HCPCS: 77080

== ENCOUNTER → 2022-12-27 13:40 | Outpatient (CLI) | payer OTHER, SELFPAY ==
--- NOTE | 2022-12-27 | DI.MRI.S_ITS ---
PROCEDURE: MR HUMERUS RT WO CON INDICATIONS: Pain in right upper arm TECHNIQUE: Noncontrast coronal and sagittal T1 spin echo and STIR; axial T1 spin echo and T2 fast spin echo with fat saturation through the right humerus. COMPARISON: [facility], , MR SHOULDER RT WO CON, 12/27/2022, 14:03. FINDINGS: Image quality: Excellent. Bones: The visualized bone marrow demonstrates normal signal on all sequences. The overlying cortex appears intact. No acute fractures lines or intra-osseous lesions. Degenerative changes are seen in the glenohumeral and acromioclavicular joints, better demonstrated on the MRI of the shoulder performed the same time. Soft tissues: The scanned muscles demonstrate normal overall bulk and internal signal. Subcutaneous tissues appear normal as well. No soft tissue masses are present. Moderate glenohumeral effusion and small subacromial/subdeltoid bursal effusion are present. No elbow joint effusion. An intermediate signal intensity nodule is incidentally noted in the included right upper lobe of the lung measuring approximately 4 mm (image 12 series 6). Proximal and distal biceps tendons appear to remain in continuity. No intramuscular edema. IMPRESSION: 1. No acute abnormality identified in the right upper arm. 2. Degenerative changes are noted in the glenohumeral and acromioclavicular joints with a moderate glenohumeral effusion and a small subacromial/subdeltoid bursal effusion. However, the internal structures of the shoulder are better evaluated on the shoulder MRI performed on the same day. 3. Incidental right upper lobe pulmonary nodule measuring 4 mm. If the patient is at an increased risk for lung malignancy, a noncontrast CT of the chest could be performed to evaluate for additional nodules. Approved by: Srinivasan Hidalgo M.D. on 12/29/2022 at 11:16
--- NOTE | 2022-12-27 | DI.MRI.S_ITS ---
PROCEDURE: MR SHOULDER RT WO CON INDICATIONS: Pain in right upper arm TECHNIQUE: Noncontrast oblique coronal T2 fast spin echo with fat saturation, oblique sagittal T1 spin echo and T2 fast spin echo with fat saturation, axial T1 spin echo and T2 fast spin echo with fat saturation through the shoulder. COMPARISON: None. FINDINGS: Image quality: Excellent. Rotator cuff: There is moderate to severe supraspinatus and infraspinatus tendinosis with low-grade partial bursal sided tearing of the supraspinatus tendon at the anterior footprint. The tearing of the anterior supraspinatus tendon insertion minor tendon is intact. Mild subscapularis tendinosis. No significant rotator cuff muscle atrophy. Bones and bursae: No acute trabecular bone injury or fracture. Chronic traction cystic changes are seen at the posterosuperior humeral head and greater tuberosity near the rotator cuff tendon insertions. High-grade and likely focal full-thickness cartilage loss is seen in the glenohumeral joint, which is most prominent at the central glenoid where there is focal subchondral cystic changes as well as at the superomedial humeral head. Moderate degenerative changes are seen at the acromioclavicular joint with subchondral cystic changes and subchondral edema as well as marginal osteophyte formation. There is a small amount of subacromial/subdeltoid bursal fluid. A moderate glenohumeral effusion is present. Filling defects within the superior subscapularis recess measuring up to 12 x 11 x 4 mm may represent a loose body or focal synovial hypertrophy. Capsule and soft tissues: There is diffuse labral degeneration. The proximal biceps long head tendon demonstrates tendinosis and partial intrasubstance tearing extending to the biceps anchor. There is perching along the medial aspect of the bicipital groove without subluxation. Effacement of the normal fat signal is noted in the rotator interval. Glenohumeral ligaments appear to be intact. IMPRESSION: 1. Moderate to severe supraspinatus and infraspinatus tendinosis with focal low-grade partial bursal sided tearing at the anterior supraspinatus insertion measuring 4 mm in anterior-posterior dimension. Mild subscapularis tendinosis. 2. Partial intrasubstance tearing of the proximal biceps long head tendon extending to the biceps tendon anchor, superimposed on chronic tendinosis. 3. Focal full-thickness cartilage loss at the central glenoid with subchondral cystic changes, superimposed on background moderate to high-grade glenohumeral cartilage loss. Diffuse labral degeneration is noted with chronic degenerative tearing. 4. Moderate glenohumeral effusion with a 12 mm filling defect in the superior subscapularis recess that may represent an intra-articular loose body or focal synovial hypertrophy. 5. Moderate acromioclavicular joint osteoarthrosis. 6. Small subacromial/subdeltoid bursal effusion or bursitis. 1. Approved by: Srinivasan Hidalgo M.D. on 12/29/2022 at 10:56
== END ==
PROVIDERS: PCP Family Medicine; Referring Provider Family Medicine; Visit Provider Family Medicine
DX: M75.111 Incomplete rotator cuff tear or rupture of right shoulder, not specified as traumatic (principal); M79.621 Pain in right upper arm; S46.111A Strain of muscle, fascia and tendon of long head of biceps, right arm, initial encounter; S43.491A Other sprain of right shoulder joint, initial encounter; M19.011 Primary osteoarthritis, right shoulder; M25.411 Effusion, right shoulder
CPT/HCPCS: 73218; 73221

== ENCOUNTER → 2023-12-02 16:25 | Outpatient (CLI) | payer OTHER, SELFPAY ==
--- NOTE | 2023-12-02 16:27 | DI.RAD.S_ITS ---
PROCEDURE: XR KNEE RT 4V INDICATIONS: R KNEE PAIN TECHNIQUE: 4 views of the knee were acquired. COMPARISON: None. FINDINGS: Bones: No fractures or dislocations. No suspicious bony lesions. Soft tissues: Small joint effusion. No suspicious soft tissue calcifications. IMPRESSION: Small knee joint effusion. No significant osteoarthritic changes. No acute osseous abnormality. If pain persists with conservative management, consider repeat x-ray in 10-14 days or cross-sectional imaging. Dictated by: Serg Jin M.D. on 12/02/2023 at 16:58 Approved by: Serg Jin M.D. on 12/02/2023 at 16:58
== END ==
PROVIDERS: PCP Family Medicine; Referring Provider Family Medicine; Visit Provider Family Medicine
DX: M25.461 Effusion, right knee (principal); M25.561 Pain in right knee; G89.29 Other chronic pain
CPT/HCPCS: 73564

== ENCOUNTER → 2024-03-30 15:23 | Outpatient (CLI) | payer OTHER, SELFPAY ==
--- NOTE | 2024-03-30 15:24 | DI.MG.S_ITS ---
BILATERAL DIGITAL SCREENING MAMMOGRAM 3D/2D WITH CAD: 03/30/2024 CLINICAL: Routine screening. Comparison is made to exams dated: 05/02/2022 mammogram, 04/18/2021 mammogram, and 05/17/2019 mammogram - [facility]. The breasts are heterogeneously dense, which may obscure small masses (category c / 51-75% glandular tissue). Current study was also evaluated with a Computer Aided Detection (CAD) system. No significant masses, calcifications, or other findings are seen in either breast. There has been no significant interval change. IMPRESSION: NEGATIVE There is no mammographic evidence of malignancy. A 1 year screening mammogram is recommended. Based on the Tyrer Cuzick model (a risk assessment model) the patient's lifetime risk is 5.7% and her 10 year risk is 5.7%. According to the ACR, ACS, and NCCN guidelines, an annual breast MRI exam along with mammogram is recommended if the patient's lifetime risk is 20% or greater. This exam was interpreted at Station ID: [id number]. NOTE: For mammograms, a report in lay terms will be sent to the patient. Approximately 15% of breast malignancies will not be visualized mammographically. In the management of a palpable breast mass, a negative mammogram must not discourage biopsy of a clinically suspicious lesion. Electronically Signed By: Terence ziegler/yany:03/31/2024 08:09:51 letter sent: Normal Exam ACR BI-RADS Category 1: Negative 3341F
== END ==
LOC: MAMMO 15:23
PROVIDERS: PCP Family Medicine; Referring Provider Family Medicine; Visit Provider Family Medicine
DX: Z12.31 Encounter for screening mammogram for malignant neoplasm of breast (principal); R92.333 Mammographic heterogeneous density, bilateral breasts
CPT/HCPCS: 77063; 77067

== ENCOUNTER → 2024-08-04 14:49 | Outpatient (CLI) | payer OTHER, SELFPAY ==
--- NOTE | 2024-08-04 14:51 | DI.RAD.S_ITS ---
PROCEDURE: XR KNEE LT 3V INDICATIONS: KNEE PAIN TECHNIQUE: 3 views of the knee were acquired. COMPARISON: [facility], CR, XR KNEE RT 4V, 12/02/2023, 15:33. FINDINGS: Bones: No fractures or dislocations. No suspicious bony lesions. Minimal tricompartment joint space loss. Soft tissues: No joint effusion. No suspicious soft tissue calcifications. IMPRESSION: No acute bony abnormality or significant effusion. Dictated by: Jasmin Garza M.D. on 08/04/2024 at 18:03 Approved by: Jasmin Garza M.D. on 08/04/2024 at 18:03
--- NOTE | 2024-08-04 14:51 | DI.RAD.S_ITS ---
PROCEDURE: XR KNEE RT 3V INDICATIONS: KNEE PAIN TECHNIQUE: 3 views of the knee were acquired. COMPARISON: [facility], CR, XR KNEE RT 4V, 12/02/2023, 15:33. FINDINGS: Bones: No fractures or dislocations. No suspicious bony lesions. Minimal tricompartment joint space loss. Soft tissues: Small joint effusion. No suspicious soft tissue calcifications. IMPRESSION: No acute bony abnormality or significant degeneration. Small joint effusion is nonspecific, similar compared to the prior exam. Dictated by: Jasmin Garza M.D. on 08/04/2024 at 18:03 Approved by: Jasmin Garza M.D. on 08/04/2024 at 18:04
== END ==
LOC: RAD 14:51
PROVIDERS: PCP Family Medicine; Referring Provider Family Medicine; Visit Provider Family Medicine
DX: M25.461 Effusion, right knee (principal); M25.561 Pain in right knee; M25.562 Pain in left knee; G89.29 Other chronic pain
CPT/HCPCS: 73562

== ENCOUNTER → 2024-11-02 13:32 | Outpatient (CLI) | payer OTHER, SELFPAY ==
--- NOTE | 2024-11-02 13:34 | DI.CT.S_ITS ---
PROCEDURE: CT LUNG LOW DOSE SCREENING INDICATIONS: HX of tobacco use TECHNIQUE: Noncontrast 2.0-2.5 mm thick sections acquired from the pulmonary apices to the posterior costophrenic angles. 7 mm thick axial MIP, and 5 mm coronal and sagittal reformats were then acquired. For radiation dose reduction, the following was used: automated exposure control, adjustment of mA and/or kV according to patient size. COMPARISON: None. FINDINGS: Image quality: Diagnostic. Lower Neck: No enlarged lymph nodes. Thyroid: No thyroid nodules which require sonographic follow up, per consensus guidelines. Axillae: No enlarged lymph nodes. Chest Wall: Unremarkable. Bones: Unremarkable. Lungs and Pleura: Moderate emphysematous changes noted particularly at the lung apices. Right upper lobe 3 mm nodule adjacent to the minor fissure on image 3/158. Right upper lobe 6 mm nodule on image 3/91. Three separate nodules in the left lower lobe on image 3/192 measure 3.8 mm, 4.3 mm, and 4.3 mm. Left lower lobe ovoid nodule measures 0.7 by 1.0 cm on image 3/213. Additional 4 mm left lower lobe nodule measures 4 mm on image 3/153 Heart: Heart size is normal. No pericardial effusion. Thoracic Vessels: The aorta and pulmonary arteries demonstrate normal size. Atherosclerotic vascular calcification Mediastinum and Katherine: No enlarged lymph nodes. Esophagus: No wall thickening. No hiatal hernia. Upper Abdomen: Visualized upper abdomen solid organs and bowel loops appear normal. IMPRESSION: Several pulmonary nodules as above, largest measures 0.7 x 1.0 cm in the left lower lobe. Background moderate pulmonary emphysema. LUNG-RADS 4A; recommend three-month follow-up CT or PET-CT Approved by: Moustapha Luz M.D. on 11/02/2024 at 15:51
== END ==
PROVIDERS: PCP Family Medicine; Referring Provider Family Medicine; Visit Provider Family Medicine
DX: Z87.891 Personal history of nicotine dependence (principal); Z12.2 Encounter for screening for malignant neoplasm of respiratory organs; R91.8 Other nonspecific abnormal finding of lung field; J43.9 Emphysema, unspecified
CPT/HCPCS: 71271

== ENCOUNTER → 2025-01-11 13:10 | Outpatient (CLI) | payer OTHER, SELFPAY ==
--- NOTE | 2025-01-11 | DI.US.S_ITS ---
PROCEDURE: US PELVIC COMPLETE INDICATIONS: LLQ PAIN X 3 DAYS TECHNIQUE: Real-time scanning was performed of the pelvic organs, with image documentation. Additional endovaginal scanning was necessary due to incomplete visualization of the adnexal and endometrial structures by transabdominal scanning. COMPARISON: None. FINDINGS: Uterus: Uterus is anteverted and normal in size at 4.6 x 2.4 x 3.6 cm. The myometrium is heterogeneous but no dominant mass. The endometrium measures 2.5 mm combined thickness. No surrounding fluid. Ovaries: Neither ovary was well seen. There are no suspicious adnexal masses. Other: No pathologic free abdominal or pelvic fluid. IMPRESSION: Age-appropriate uterus appears normal. Nonvisualization of either ovary or other abnormal adnexal mass. We strive to produce accurate, complete, and clear reports of imaging services. To assist us in improving patient care, this report was composed using standard report templates and voice recognition software. Therefore, it may contain abnormal punctuation, insertions and/or omissions. Occasional wrong-word or sound-alike substitutions may occur. Though we review the report and make efforts to correct it, we do recommend that the report be read carefully in proper context to recognize any text inaccuracies. Dictated by: Jasmin Garza M.D. on 01/11/2025 at 17:26 Approved by: Jasmin Garza M.D. on 01/11/2025 at 17:27
== END ==
LOC: US 13:11
PROVIDERS: PCP Family Medicine; Referring Provider Family Medicine; Visit Provider Family Medicine
DX: R10.32 Left lower quadrant pain (principal)
CPT/HCPCS: 76830; 76856

== ENCOUNTER → 2025-02-21 10:08 | Outpatient (CLI) | payer OTHER, SELFPAY ==
--- NOTE | 2025-02-21 10:10 | DI.CT.S_ITS ---
PROCEDURE: CT CHEST WO CON INDICATIONS: LUNG NODULE TECHNIQUE: Noncontrast 5 mm thick sections acquired from the pulmonary apices to the posterior costophrenic angles. 1 mm lung window, 5 mm thick coronal and sagittal and 7 mm axial MIP reformats were then acquired. For radiation dose reduction, the following was used: automated exposure control, adjustment of mA and/or kV according to patient size. COMPARISON: [facility], CT, CT LUNG LOW DOSE SCREENING, 11/02/2024, 13:39. FINDINGS: Image quality: Diagnostic. Lower Neck: No enlarged lymph nodes. Thyroid: No thyroid nodules which require sonographic follow up, per consensus guidelines. Axillae: No enlarged lymph nodes. Chest Wall: Unremarkable. Bones: Unremarkable. Lungs and Pleura: No pneumothorax or pleural effusions. Moderate underlying COPD. Stable appearance of several nodules in the right upper lobe measuring up to 4 mm. Stable 5 mm perivascular density in the right upper lobe centrally. Stable appearance of the dominant nodule in the left lower lobe inferolaterally measuring 1 x 0.6 cm as well as other nodules more superiorly in the left lower lobe measuring up to 6 mm. No new focal lesion seen. Heart: Heart size is normal. No pericardial effusion. Thoracic Vessels: The aorta and pulmonary arteries demonstrate normal size. Mediastinum and [place]: No enlarged lymph nodes. Esophagus: No wall thickening. No hiatal hernia. Upper Abdomen: Visualized upper abdomen solid organs and bowel loops appear normal. IMPRESSION: Stable appearance of several bilateral nodules measuring up to 1 cm in the left lower lobe as well as perivascular density in the right upper lobe. Follow-up CT may be obtained in 6 months. Dictated by: Tanner Arroyo M.D. on 02/21/2025 at 14:47 Approved by: Tanner Arroyo M.D. on 02/21/2025 at 14:55
== END ==
PROVIDERS: PCP Family Medicine; Referring Provider Family Medicine; Visit Provider Family Medicine
DX: R91.1 Solitary pulmonary nodule (principal); J44.9 Chronic obstructive pulmonary disease, unspecified
CPT/HCPCS: 71250

== ENCOUNTER → 2025-05-20 10:18 | Outpatient (CLI) | payer OTHER, SELFPAY ==
[2025-05-20 13:08] LABS: Influenza A - CEPHEID Flu A NEGATIVE (NEGATIVE); Influenza B - CEPHEID Flu B NEGATIVE (NEGATIVE)
[2025-05-20 13:09] LABS: COVID-19 CEPHEID 4-PLEX PCR Negative (Negative)
== END ==
PROVIDERS: PCP Family Medicine; Visit Provider Nurse Practitioner Family
DX: R05.9 Cough, unspecified (principal); R07.0 Pain in throat
CPT/HCPCS: 87070; 87637

== ENCOUNTER → 2025-05-20 10:26 | Outpatient (CLI) | payer OTHER, SELFPAY ==
--- NOTE | 2025-05-20 10:27 | DI.RAD.S_ITS ---
PROCEDURE: XR CHEST 2V INDICATIONS: Cough TECHNIQUE: 2 views of the chest were acquired. COMPARISON: [facility], CR, XR CHEST 1V, 09/07/2020, 10:49. FINDINGS: Surgical changes and devices: None. Lungs and pleura: Lungs are clear. No pleural effusions or pneumothorax. Mediastinum: Mediastinal contours are normal. Heart size is normal. Atherosclerotic vascular calcification noted in the aortic arch. Bones and chest wall: T12 wedge-shaped compression fracture. Osteopenia IMPRESSION: No acute cardiopulmonary abnormality is seen. T12 compression fracture, uncertain age Approved by: Moustapha Luz M.D. on 05/20/2025 at 10:22
== END ==
PROVIDERS: PCP Family Medicine; Referring Provider Nurse Practitioner Family; Visit Provider Nurse Practitioner Family
DX: M48.54XA Collapsed vertebra, not elsewhere classified, thoracic region, initial encounter for fracture (principal); R05.9 Cough, unspecified; R07.0 Pain in throat
CPT/HCPCS: 71046; 87070; 87637